=== PATIENT | female | born 1965 | race Caucasian/White ===

== ENCOUNTER 2018-04-03 04:42 | Emergency (ER) | payer OTHER ==
[~2018-04-03] VITALS: Ht 165.1 cm; Wt 88.0 kg
[~2018-04-03 04:42] MED LIST: OMEP40CA37 PO; TOPI50TA PO
[2018-04-03] MEDS ORDERED: OXYCODONE/APAP 5-325 MG TABLET ONE (05:15)
[2018-04-03] MEDS: OXYCODONE/APAP 5-325 MG TABLET PO ONE (05:16)
--- NOTE | 2018-04-03 05:22 | NUR ---
Phlebotomy at bedside for serum lab draw.
--- NOTE | 2018-04-03 05:27 | NUR ---
Patient taken to CT via gurney with [employer].
[2018-04-03 05:30] LABS: BASOPHILS # (AUTO) 0.1 K/uL (0.0-8.0); BASOPHILS % (AUTO) 0.6 % (0.0-2.0); EOSINOPHILS # (AUTO) 0.2 K/uL (0.0-0.7); EOSINOPHILS % (AUTO) 1.9 % (0.0-7.0); HEMATOCRIT 37.9 % (31.2-41.9); HEMOGLOBIN 13.2 g/dL (10.9-14.3); LYMPHOCYTES # (AUTO) 3.1 K/uL (20.0-40.0); LYMPHOCYTES % (AUTO) 28.5 % (20.5-51.5); MEAN CORPUSCULAR HEMOGLOBIN 30.9 uug (24.7-32.8); MEAN CORPUSCULAR HGB CONC 35 g/dL (32.3-35.6); MEAN CORPUSCULAR VOLUME 88.9 fL (75.5-95.3); MONOCYTES # (AUTO) 0.6 K/uL (2.0-10.0); MONOCYTES % (AUTO) 5.4 % (0.0-11.0); NEUTROPHILS % (AUTO) 63.6 % (38.5-71.5); PLATELET COUNT (AUTO) 324 K/uL (179-408); RED BLOOD CELL COUNT(AUTO) 4.27 MIL/uL (3.63-4.92)
--- NOTE | 2018-04-03 05:35 | NUR ---
Patient back from CT at this time. no acute distress noted. VSS
[2018-04-03 05:40] LABS: BILIRUBIN,TOTAL 0.2 mg/dL (0.2-1.0); CREATININE 0.8 mg/dL (0.6-1.3); POTASSIUM 4.3 mmol/L (3.5-5.1); TOTAL PROTEIN, SERUM 7.1 g/dL (6.4-8.2)
--- NOTE | 2018-04-03 06:16 | NUR ---
Patient discharged to home in stable conditon. Written and verbal after care instructions given. Patient verbalizes understanding of instructions. Ambulated from ER with stable gait. All belongings with patient. VSS
[2018-04-03 06:19] VITALS: BP 138/81
== END 2018-04-03 06:20 | disposition home or self-care (01) ==
LOC: ER 04:44
DX: G44.209 Tension-type headache, unspecified, not intractable (principal); I10 Essential (primary) hypertension; Z79.899 Other long term (current) drug therapy
CPT/HCPCS: 36415; 70450; 85025; A4663

== ENCOUNTER 2018-05-01 21:11 | Emergency (ER) | payer OTHER ==
[~2018-05-01] VITALS: Ht 165.1 cm; Wt 88.5 kg
--- NOTE | 2018-05-01 21:30 | NUR ---
Pt came to ER via wheelchair with c/o near syncopal episode while driving 1 hr prior to arrival. Pt states while she was driving, she sneezed, & immediately felt a "pop" in her left ear. Pt stated she felt faint & had blurred vision for 3 seconds. Also c/o coughing x 1 week. AAOX4. Ambulated to restroom steadily. No acute distress noted. VSS.
[2018-05-01] MEDS ORDERED: IV NORMAL SALINE 1000 ML BAG IV ONE (21:45)
[2018-05-01 22:05] LABS: BASOPHILS # (AUTO) 0.1 K/uL (0.0-8.0); BASOPHILS % (AUTO) 0.7 % (0.0-2.0); EOSINOPHILS # (AUTO) 0.5 K/uL (0.0-0.7); EOSINOPHILS % (AUTO) 5.9 % (0.0-7.0); HEMATOCRIT 38.8 % (31.2-41.9); LYMPHOCYTES # (AUTO) 2.1 K/uL (20.0-40.0); LYMPHOCYTES % (AUTO) 23.7 % (20.5-51.5); MEAN CORPUSCULAR HEMOGLOBIN 29.5 uug (24.7-32.8); MEAN CORPUSCULAR HGB CONC 33 g/dL (32.3-35.6); MEAN CORPUSCULAR VOLUME 88.5 fL (75.5-95.3); MONOCYTES # (AUTO) 0.7 K/uL (2.0-10.0); MONOCYTES % (AUTO) 8.2 % (0.0-11.0); NEUTROPHILS # (AUTO) 5.4 K/uL (1.8-8.9); NEUTROPHILS % (AUTO) 61.5 % (38.5-71.5); PLATELET COUNT (AUTO) 295 K/uL (179-408); RED BLOOD CELL COUNT(AUTO) 4.39 MIL/uL (3.63-4.92); WHITE BLOOD COUNT (AUTO) 8.8 K/uL (3.8-11.8)
[2018-05-01 22:12] LABS: CREATININE 0.7 mg/dL (0.6-1.3); POTASSIUM 4.2 mmol/L (3.5-5.1)
[2018-05-01 22:18] LABS: BILIRUBIN,DIRECT 0.1 mg/dL (0.0-0.2); BILIRUBIN,TOTAL 0.2 mg/dL (0.2-1.0); TOTAL PROTEIN, SERUM 7.1 g/dL (6.4-8.2)
--- NOTE | 2018-05-01 22:44 | NUR ---
Patient discharged to home in stable conditon. Written and verbal after care instructions given. Patient verbalizes understanding of instructions.
--- NOTE | 2018-05-01 22:44 | NUR ---
IV removed. Catheter intact and site benign. Pressure and 4x4 gauze applied to site. No bleeding noted.
[2018-05-01 23:10] VITALS: BP 137/78
== END 2018-05-01 23:11 | disposition home or self-care (01) ==
LOC: ER 21:12
DX: R55 Syncope and collapse (principal); R09.81 Nasal congestion; I10 Essential (primary) hypertension; Z79.899 Other long term (current) drug therapy
CPT/HCPCS: 36415; 70030-TC; 85025; 85730; 93005; A4663; J7030

== ENCOUNTER 2018-12-04 21:25 | Emergency (ER) | payer OTHER ==
[~2018-12-04] VITALS: Ht 165.1 cm; Wt 81.6 kg
[2018-12-04] MEDS ORDERED: diphenhydrAMINE 50 MG CAPSULE PO ONE (22:45)
[2018-12-04] MEDS ORDERED: IBUPROFEN 800 MG TABLET PO ONE (22:45)
[2018-12-04] MEDS ORDERED: diphenhydrAMINE 50 MG CAPSULE ONE (22:53)
[2018-12-04] MEDS ORDERED: IBUPROFEN 800 MG TABLET ONE (22:53)
--- NOTE | 2018-12-04 23:06 | NUR ---
Patient discharged to home in stable conditon WITH TAKING PATIENT HOME. Written and verbal after care instructions given. Patient verbalizes understanding of instructions. wALKED OUT OF ER WITH NO DISTRESS NOTED.
[2018-12-04 23:07] VITALS: BP 115/88
== END 2018-12-04 23:08 | disposition home or self-care (01) ==
LOC: ER 21:26
DX: R60.9 Edema, unspecified (principal); I10 Essential (primary) hypertension; Z79.899 Other long term (current) drug therapy
CPT/HCPCS: 99283; Q0163; A4663

== ENCOUNTER 2020-06-04 07:40 | Emergency (ER) | payer OTHER ==
[~2020-06-04] VITALS: Ht 165.1 cm; Wt 103.0 kg
[~2020-06-04 07:40] MED LIST changes: +OMEP40CA13 PO; -OMEP40CA37 PO
--- NOTE | 2020-06-04 07:48 | NUR ---
at bedside for assessment
[2020-06-04 08:29] LABS: *BILIRUBIN,URIN NEGATIVE (NEGATIVE); *CLARITY,URINE CLEAR (CLEAR); *COLOR,URINE LIGHT YELLOW (YELLOW); *KETONES,URINE NEGATIVE (NEGATIVE); *UROBILINOGEN,URINE 0.2 E.U./dl (NORMAL); LEUKOCYTE ESTERASE ,URINE NEGATIVE (NEGATIVE); NITRITE, URINE NEGATIVE (NEGATIVE); PH,URINE 6.5 (5.0-8.0); UGLUCOSE NEGATIVE (NEGATIVE)
[2020-06-04 08:31] LABS: *BLOOD, URINE TRACE (NEGATIVE)
[2020-06-04 08:31] LABS: CREATININE 0.8 mg/dL (0.6-1.3); POTASSIUM 4.1 mmol/L (3.5-5.1)
[2020-06-04 08:32] LABS: BASOPHILS # (AUTO) 0.1 K/uL (0.0-8.0); BASOPHILS % (AUTO) 0.8 % (0.0-2.0); EOSINOPHILS # (AUTO) 0.1 K/uL (0.0-0.7); EOSINOPHILS % (AUTO) 1.8 % (0.0-7.0); HEMATOCRIT 35.4 % (31.2-41.9); HEMOGLOBIN 11.6 g/dL (10.9-14.3); LYMPHOCYTES # (AUTO) 1.9 K/uL (20.0-40.0); MEAN CORPUSCULAR HEMOGLOBIN 28.5 uug (24.7-32.8); MEAN CORPUSCULAR HGB CONC 33 g/dL (32.3-35.6); MEAN CORPUSCULAR VOLUME 86.7 fL (75.5-95.3); MONOCYTES # (AUTO) 0.6 K/uL (2.0-10.0); MONOCYTES % (AUTO) 7.8 % (0.0-11.0); NEUTROPHILS # (AUTO) 5.2 K/uL (1.8-8.9); NEUTROPHILS % (AUTO) 65.6 % (38.5-71.5); PLATELET COUNT (AUTO) 306 K/uL (179-408); RED BLOOD CELL COUNT(AUTO) 4.08 MIL/uL (3.63-4.92)
[2020-06-04] MEDS ORDERED: FURO-151 PO (08:49)
--- NOTE | 2020-06-04 09:01 | NUR ---
Patient discharged to home in stable condition. Able to ambulate with steady gait. no signs of acute distress. Written and verbal after care instructions given. Patient verbalizes understanding of instructions. Stressed follow up or return to ER for worsening s/s.
[2020-06-04 09:03] VITALS: BP 140/78
[2020-06-04 12:12] LABS: BACTERIA,URINE NONE SEEN /HPF (NONE SEEN); RBC,URINE 0-3 /HPF (0-3); SQUAMOUS EPITHELIAL CELL,UR FEW /HPF (NONE SEEN); WBC,URINE 0-3 /HPF (0-3)
== END 2020-06-04 08:58 | disposition home or self-care (01) ==
LOC: ER 07:40
DX: R60.0 Localized edema (principal); I10 Essential (primary) hypertension; G43.909 Migraine, unspecified, not intractable, without status migrainosus; Z79.899 Other long term (current) drug therapy
CPT/HCPCS: 36415; 85025; A4663

== ENCOUNTER 2021-07-06 01:38 | Emergency (ER) | payer OTHER ==
[~2021-07-06] VITALS: Ht 165.1 cm; Wt 97.5 kg
[~2021-07-06 01:38] MED LIST changes: +FURO-151 PO; -OMEP40CA13 PO; +OMEP40CA21 PO
--- NOTE | 2021-07-06 02:51 | NUR ---
Dr. Damon in room for BARBARA.
[2021-07-06] MEDS ORDERED: HYDROCODONE/APAP 5-325MG TABLET ONE (03:08)
[2021-07-06] MEDS ORDERED: HYDROCODONE/APAP 5-325MG TABLET PO ONE (03:15)
--- NOTE | 2021-07-06 03:55 | NUR ---
pt taken for cat scan of the head.
[2021-07-06 04:57] VITALS: BP 140/60
--- NOTE | 2021-07-06 04:57 | NUR ---
Patient discharged to home in stable condition. Written and verbal after care instructions given. Patient verbalizes understanding of instructions. Stressed follow up or return to ER for worsening s/s.
== END 2021-07-06 04:57 | disposition home or self-care (01) ==
LOC: ER 01:41
DX: S09.90XA Unspecified injury of head, initial encounter (principal); S00.83XA Contusion of other part of head, initial encounter; V48.4XXA Person boarding or alighting a car injured in noncollision transport accident, initial encounter; Y92.89 Other specified places as the place of occurrence of the external cause; I10 Essential (primary) hypertension
CPT/HCPCS: 70450; A4663

== ENCOUNTER 2023-03-23 19:14 | Emergency (ER) | payer OTHER ==
[~2023-03-23] VITALS: Ht 165.1 cm; Wt 75.7 kg
[2023-03-23] MEDS ORDERED: IV NORMAL SALINE 1000 ML BAG IV ONE (20:00)
[2023-03-23 20:16] LABS: BASOPHILS % (AUTO) 0.3 % (0.0-2.0); EOSINOPHILS % (AUTO) 0.4 % (0.0-7.0); HEMATOCRIT 41.2 % (31.2-41.9); HEMOGLOBIN 14.4 g/dL (10.9-14.3); LYMPHOCYTES # (AUTO) 1.6 K/uL (0.8-4.8); LYMPHOCYTES % (AUTO) 18.2 % (20.5-51.5); MEAN CORPUSCULAR HEMOGLOBIN 32.5 uug (24.7-32.8); MEAN CORPUSCULAR HGB CONC 35 g/dL (32.3-35.6); MEAN CORPUSCULAR VOLUME 93.2 fL (75.5-95.3); MONOCYTES # (AUTO) 0.9 K/uL (0.1-1.30); MONOCYTES % (AUTO) 10.4 % (0.0-11.0); NEUTROPHILS # (AUTO) 6.1 K/uL (1.8-8.9); NEUTROPHILS % (AUTO) 70.7 % (38.5-71.5); PLATELET COUNT (AUTO) 252 K/uL (179-408); RED BLOOD CELL COUNT(AUTO) 4.42 MIL/uL (3.63-4.92); RED CELL DISTRIBUTION WIDTH 12.1 % (12.3-17.7); WHITE BLOOD COUNT (AUTO) 8.7 K/uL (3.8-11.8)
[2023-03-23] MEDS ORDERED: ONDANSETRON 4 MG/2 ML VIAL ONE (20:17)
[2023-03-23] MEDS ORDERED: HYDROMORPHONE 1 MG/1 ML DISP.SYRIN ONE (20:17)
[2023-03-23 20:20] LABS: DIFFERENTIAL COMMENT 1
[2023-03-23] MEDS ORDERED: HYDROMORPHONE 1 MG/1 ML DISP.SYRIN IV ONE (20:30)
[2023-03-23] MEDS ORDERED: ONDANSETRON 4 MG/2 ML VIAL IV ONE (20:30)
[2023-03-23 20:31] LABS: CALCIUM 8.7 mg/dL (8.5-10.1); CARBON DIOXIDE 23 mmol/L (21-32); CHLORIDE 105 mmol/L (98-107); CREATININE 0.7 mg/dL (0.6-1.3); GLUCOSE 92 mg/dL (74-106); POTASSIUM 3.4 mmol/L (3.5-5.1); SODIUM SERUM 139 mmol/L (136-145); UREA NITROGEN, BLOOD 12 mg/dL (7-18)
[2023-03-23 20:38] LABS: ALANINE AMINOTRANSFERASE 21 U/L (14-59); ALBUMIN 3.4 g/dL (3.4-5.0); ALKALINE PHOSPHATASE 61 U/L (50-136); ASPARTATE AMINOTRANSFERASE 13 U/L (15-37); BILIRUBIN,DIRECT 0.1 mg/dL (0.0-0.2); BILIRUBIN,TOTAL 0.6 mg/dL (0.2-1.0); LIPASE 33 U/L (16-77); TOTAL PROTEIN, SERUM 6.8 g/dL (6.4-8.2)
[2023-03-23] MEDS ORDERED: IOHEXOL 350 100 ML INFUS..BTL ONE (20:55)
[2023-03-23] MEDS ORDERED: IV NORMAL SALINE 250 ML IV ONE (20:55)
[2023-03-23] MEDS ORDERED: SWABABLE VALVE TRANSFER SET EA MC ONE (20:55)
[2023-03-23] MEDS ORDERED: DICY20TA11 PO (22:03)
[2023-03-23] MEDS ORDERED: ONDA4TAB5 PO (22:03)
[2023-03-23 22:52] VITALS: BP 110/63; O2SAT 97
== END 2023-03-23 22:53 | disposition home or self-care (01) ==
LOC: ER 19:59
DX: R10.33 Periumbilical pain (principal); M54.6 Pain in thoracic spine; R11.10 Vomiting, unspecified; R19.7 Diarrhea, unspecified; F41.9 Anxiety disorder, unspecified; E11.9 Type 2 diabetes mellitus without complications
CPT/HCPCS: 99285; 71275; 96374; 96361; 96375; 80076; 80048; 83690; 85025; 84484 ×2; 36415; 93005; 74177; J2405; Q9967; J1170; J7040; A4606; A4663